=== PATIENT | female | born 1950 ===

== ENCOUNTER 2017-10-16 08:20 | Emergency (ER) | payer MEDICARE, BC ==
[2017-10-16 08:43] VITALS: BP 166/63
--- NOTE | 2017-10-16 09:28 | UC ---
Ear Complaint HPI - HPI Summary HPI Summary: 67 yo female with left italgia and bloody D/C Uri symtpoms x 2 days no f/c - History of Current Complaint Chief Complaint: UCEar Stated Complaint: LEFT EAR PAIN Time Seen by Provider: 10/16/17 09:14 Hx Obtained From: Patient Onset/Duration: Gradual Onset, Lasting Days Severity Initially: Moderate Severity Currently: Mild Pain Intensity: 2 Pain Scale Used: 0-10 Numeric Aggravating Factors: Other Associated Signs/Symptoms: Positive: Hearing Loss, URI Symptoms - Allergies/Home Medications Allergies/Adverse Reactions: Allergies Allergy/AdvReac Type Severity Reaction Status Date / Time No Known Allergies Allergy Verified 10/16/17 08:33 Home Medications: Home Medications Lisinopril/Hydrochlorothiazide [Zestoretic 20-12.5 mg Tablet] 1 each PO DAILY [History Confirmed 10/16/17] Metformin HCl [Fortamet] 500 mg PO DAILY 10/16/17 [History Confirmed 10/16/17] PMH/Surg Hx/FS Hx/Imm Hx Previously Healthy: Yes Endocrine History: Diabetes Cardiovascular History: Hypertension - Surgical History Surgical History: Yes Surgery Procedure, Year, and Place: Shoulder surgery - Family History Known Family History: Positive: Hypertension, Other - pancreatic CA (F) - Social History Alcohol Use: Weekly Alcohol Amount: 3-4 times weekly Substance Use Type: None Smoking Status (MU): Current Some Day Smoker Type: Cigarettes Amount Used/How Often: 1 pack per month Review of Systems Constitutional: Negative Skin: Negative Eyes: Negative ENT: Sore Throat, Ear Ache, Nasal Discharge, Sinus Congestion Respiratory: Negative Cardiovascular: Negative Gastrointestinal: Negative Genitourinary: Negative Motor: Negative Neurovascular: Negative Musculoskeletal: Negative Neurological: Negative Psychological: Negative All Other Systems Reviewed And Are Negative: Yes Physical Exam Triage Information Reviewed: Yes Appearance: Well-Appearing, No Pain Distress, Well-Nourished Vital Signs: Initial Vital Signs Temp 98.4 F 10/16/17 08:36 Pulse 100 10/16/17 08:36 Resp 20 10/16/17 08:36 BP 166/63 10/16/17 08:36 Pulse Ox 95 10/16/17 08:36 Vital Signs Reviewed: Yes Eyes: Positive: Conjunctiva Clear ENT: Positive: Nasal congestion, TM red - LEFT, Other - bloody d/c in left EAC. Negative: Hearing grossly normal, Nasal drainage, TMs normal, Tonsillar swelling, Tonsillar exudate, Trismus, Muffled voice, Hoarse voice Dental Exam: Normal Neck: Positive: Supple, Nontender, No Lymphadenopathy Respiratory: Positive: Chest non-tender, Lungs clear, Normal breath sounds, No respiratory distress Cardiovascular: Positive: RRR, No Murmur Musculoskeletal: Positive: ROM Intact, No Edema Neurological: Positive: Alert Psychological Exam: Normal Skin Exam: Normal Ear Complaint Course/Dx - Differential Dx/Diagnosis Provider Diagnoses: left otitis media. left TM perforation Discharge - Sign-Out/Discharge Documenting (check all that apply): Discharge - Discharge Plan Condition: Stable Disposition: HOME Prescriptions: Amoxicillin PO (*) [Amoxicillin 875 MG (*)] 875 mg PO BID #20 tab Patient Education Materials: Ruptured Eardrum (ED), Ear Infection (ED) Referrals: Nabor Norman MD [Primary Care Provider] - 2 Weeks Additional Instructions: tylenol or advil for pain recheck in 2-3 days if not improved - Billing Disposition and Condition Condition: STABLE Disposition: HOME
== END 2017-10-16 09:33 | disposition home or self-care (01) ==
LOC: UCCORT 08:20
DX: H66.92 Otitis media, unspecified, left ear (principal); H72.92 Unspecified perforation of tympanic membrane, left ear; F17.210 Nicotine dependence, cigarettes, uncomplicated
CPT/HCPCS: 99202; G0463

== ENCOUNTER 2017-11-07 08:31 | Emergency (ER) | payer MEDICARE, BC ==
[2017-11-07 09:00] VITALS: BP 139/54
--- NOTE | 2017-11-07 09:27 | UC ---
Respiratory Complaint HPI - HPI Summary HPI Summary: Per [facility] helper induction: "Pt returns from 10/16/17 visit, c/o reduced hearing on left; pain with deep breaths in back at shoulder blade, chest congestion.Pt has had antibiotic tx for 18 days. PCP prescribed ear drops 10/26; informed pt that ear is improving. Pt c/o sore throat to PCP on 11/03/17, c/o post nasal drip, PCP added claritin tx 11/03/17. Pt will see ENT 11/18/17." Dr Holliday. -ear drops and abx are for perforated left TM recently. she says that she knows that she "frets" allory royal doesnt know that she had to come in. has been to the Drs several times for these sx. no fevers or chills. -she denies all chest pain. pain in back is mild. - History of Current Complaint Chief Complaint: UCRespiratory Stated Complaint: RESPRITORY Time Seen by Provider: 11/07/17 08:57 Pain Intensity: 0 - Allergies/Home Medications Allergies/Adverse Reactions: Allergies Allergy/AdvReac Type Severity Reaction Status Date / Time No Known Allergies Allergy Verified 11/07/17 09:00 Home Medications: Home Medications Loratadine [Claritin 10 MG CAP] 10 mg PO DAILY 11/07/17 [History Confirmed 11/07] Neomyc/Polym/HC 1% OTIC SUSP* [Cortisporin Otic Susp 1%*] 1 tosha BOTH EARS QID [History Confirmed 11/07/17] PMH/Surg Hx/FS Hx/Imm Hx Endocrine History: Diabetes Cardiovascular History: Hypertension - Surgical History Surgical History: Yes Surgery Procedure, Year, and Place: Right shoulder surgery - Family History Known Family History: Positive: Hypertension, Other - pancreatic CA (F) - Social History Alcohol Use: Weekly Alcohol Amount: 3-4 times weekly Substance Use Type: None Smoking Status (MU): Current Some Day Smoker Type: Cigarettes Amount Used/How Often: 1 pack per month Review of Systems Constitutional: Negative Skin: Negative Eyes: Negative ENT: Sore Throat, Ear Ache Respiratory: Cough Cardiovascular: Negative Gastrointestinal: Negative Genitourinary: Negative Motor: Negative Neurovascular: Negative Musculoskeletal: Negative Neurological: Negative Psychological: Negative Is Patient Immunocompromised?: No All Other Systems Reviewed And Are Negative: Yes Physical Exam Triage Information Reviewed: Yes Appearance: Well-Appearing, No Pain Distress, Well-Nourished Vital Signs: Initial Vital Signs Temp 98.6 F 11/07/17 08:41 Pulse 93 11/07/17 08:41 Resp 18 11/07/17 08:41 BP 139/54 11/07/17 08:41 Pulse Ox 98 11/07/17 08:41 Vital Signs Reviewed: Yes Eyes: Positive: Conjunctiva Clear ENT: Positive: Pharyngeal erythema - mild, +PND, no exudate., TM dull - left ear w/ scar tissue and scabing on TM. Negative: Sinus tenderness Dental Exam: Normal Neck exam: Normal Neck: Positive: Supple, Nontender, No Lymphadenopathy Respiratory: Positive: Lungs clear, No respiratory distress, No accessory muscle use, Decreased breath sounds - mild. Negative: Crackles, Rhonchi, Stridor, Wheezing Cardiovascular Exam: Normal Cardiovascular: Positive: RRR Abdomen Description: Positive: Nontender, Soft Musculoskeletal Exam: Normal Neurological Exam: Normal Psychological Exam: Normal Skin Exam: Normal UC Diagnostic Evaluation - Laboratory O2 Sat by Pulse Oximetry: 98 Respiratory Course/Dx - Course Course Of Treatment: Viral URI in lungs. may get some rellief w/ alb MDI. disc potential SEs of jitteriness and faster heart rate. - Differential Dx/Diagnosis Differential Diagnosis/HQI/PQRI: Asthma, Bronchitis, Lower Resp Infection Provider Diagnoses: URI Discharge - Sign-Out/Discharge Documenting (check all that apply): Discharge/Admit/Transfer - Discharge Plan Condition: Stable Disposition: HOME Prescriptions: Albuterol HFA INHALER* [Ventolin HFA Inhaler*] 2 puff INH Q4H PRN #1 mdi PRN Reason: Cough Patient Education Materials: Cold Symptoms (ED) Referrals: Juhi Norman MD [Primary Care Provider] - Additional Instructions: You can use the albuterol inhaler for symptomatic relief. Continue the current plan that the other providers have made for you. - Billing Disposition and Condition Condition: STABLE Disposition: HOME
== END 2017-11-07 09:47 | disposition home or self-care (01) ==
LOC: UCCORT 08:31
DX: J06.9 Acute upper respiratory infection, unspecified (principal); R07.1 Chest pain on breathing; E11.9 Type 2 diabetes mellitus without complications; I10 Essential (primary) hypertension; F17.210 Nicotine dependence, cigarettes, uncomplicated
CPT/HCPCS: 99212; G0463

== ENCOUNTER 2019-07-01 09:29 | Emergency (ER) | payer MEDICARE, BC ==
--- OUTSIDE RECORDS SUMMARY | 2019-07-01 09:53 | XMS REPORT | Continuity of Care Document ---
:1950 External Reference #:[id number] Author Name Juhi Norman M.D. Address [address] [place] [address] Problems Active Problems Provider Date Type II diabetes mellitus uncontrolled Juhi Norman M.D. Onset: 04/20/2013 Essential hypertension Juhi Norman M.D. Onset: 04/20/2013 Hyperlipidemia Juhi Norman M.D. Onset: 04/20/2013 Psoriasis with arthropathy Juhi Norman M.D. Onset: 07/31/2014 Social History Type Date Description Comments Sex Unknown ETOH Use Consumes 3 glasses of wine per day Tobacco Use Start: Unknown Patient is a current smoker, 10 cigarrettes per month smokes some days Allergies, Adverse Reactions, Alerts Description No Known Drug Allergies Medications Active Medications SIG Qnty Indications Ordering Date Provider Ketoconazole apply twice a day 60gm Juhi Norman, 11/22/2018 2% M.D. Cream One Touch Test as directed - 1 x 100units E11.65 Juhi Norman, 11/22/2018 Strips daily M.D. Omeprazole 1 by mouth every day 90caps K21.9 Juhi Norman, 03/03/[address] Kuamr 1 dose intramuscular 2doses Juhi Norman, 02/16/2018 50mcg then repeat in 4 M.D. Suspension Rec month Clotrimazole/Betame apply to affected 45units B37.2 Juhi Norman, 2016 thasone area three times a M.D. Dipropionate day 1-0.05% Cream One Touch Delica test once daily dx 100units Juhi Norman, 05/22/2016 e11.9 M.D. One Touch as directed 1units E11.65 Juhi Norman, 01/24/2014 Glucometer M.D. Lisinopril-Hydrochl take one tablet by 90tabs Juhi Norman, 01/24/2014 orothiazide mouth every day M.D. 20-12.5mg Tablets Calcium 500 +D bid Nurse 04/13/2013 [id number] Tablets Fish Oil 2 tabs po qam and 1 Nurse 04/13/2013 1000mg tab po qpm Capsules Multivital-M every day Nurse 04/13/2013 Tablets Vitamin D-1000 as directed. 100tabs Nurse 04/13/2013 1000Unit Tablets Metformin HCL ER tab 1 by mouth every 90tabs Juhi Norman, 04/13/2013 evening M.D. 500mg Tablets ER 24HR Lotemax One Drop In Eye Unknown 0.5% Suspension [employer] Berg[place]ot one a day Unknown Capsule Immunizations CPT Code Status Date Vaccine Reaction Lot # [id number] Given 06/23/2019 Influenza Virus [id number] (Quadrivalent)Splitvirus 3 Years Of Age And Older Q2035 Given 05/25/2018 Influenza Virus [id number] (Quadrivalent)Splitvirus 3 Years Of Age And Older Q2035 Given 04/07/2017 Influenza Virus (Quadrivalent)Splitvirus 3 Years Of Age And Older Q2035 Given 04/07/2017 Influenza Virus (Quadrivalent)Splitvirus 3 Years Of Age And Older [id number] Given 12/05/2016 Tetanus,Diphtheria,Adut/Ad [id number] ol Pertussis Q2037 Given 04/01/2016 Influenza Vaccine [id number] (Fluvirin) 3 Years Of Age Or Older Q2037 Given 06/18/2015 Influenza Vaccine [id number] (Fluvirin) 3 Years Of Age Or Older 75631 Given 02/07/2015 Pneumococcal Conjugate [id number] Vaccine 13 Valent For Intramuscular Use Q2036 Given 07/14/2014 Flulaval [id number] Q2036 Given 04/20/2013 Flulaval [id number] 15281 Given 07/06/2011 Pneumovax Polyvalent Inj Done through prevous Im prvider [id number] Given 04/05/2010 Zostavax Done through previus provider Vital Signs Date Vital Result Comment 06/23/2019 12:02pm BP Systolic 142 mmHg BP Diastolic 90 mmHg Heart Rate 82 /min Height 69 inches 5'9" Weight 221.00 lb BMI (Body Mass Index) 32.6 kg/m2 03/01/2019 10:17am BP Systolic 118 mmHg BP Diastolic 62 mmHg Heart Rate 82 /min Height 69 inches 5'9" Weight 219.00 lb BMI (Body Mass Index) 32.3 kg/m2 O2 % BldC Oximetry 96 % Results Test Acquired Date Facility Test Result H/L Range Note .Lipid Panel 05/30/2019 [facility] Cholesterol 259 mg /dL High <200 1, [address] [place] [address] [phone] Triglycerides 131 mg/dL <150 3 HDL Cholesterol 49 mg/dL >40 4 LDL-Cholesterol 184 mg/dL < 100 5 Hemoglobin A1c 05/30/2019 [facility] Glycohemoglobin 6.2 % Normal 4.2-6.3 [address] (A1c) [place], [place] [id number] [phone] eAG 131 mg/dL Basic Metabolic 05/30/2019 [facility] Glucose 118 mg/ dL High 74-[address] [place], [place] [id number] [phone] BUN 23 mg/dL High 7-18 Creatinine 0.7 mg/dL Normal 0.6-1.3 Glom Filtration Rate, Estimate >60 mL/min >60 If >60 mL/min >60 7 BUN/Creat 32.8 ratio Sodium 136 mmol/L Normal 136-145 Potassium 4.2 mmol/L Normal 3.5-5.1 Chloride 105 mmol/L Normal 98-107 Carbon Dioxide 26 mmol/L Normal 21-32 Anion Gap 5 mEq/L Low 8-16 Calcium 9.1 mg/dL Normal 8.5-10.1 .Lipid Panel 02/11/2019 [facility] Cholesterol 242 mg /dL High <200 8, [address] [place], [place] [id number] [phone] Triglycerides 127 mg/dL <150 10 HDL Cholesterol 46 mg/dL >40 11 LDL-Cholesterol 171 mg/dL < 100 12 1 E11.9 I11.9 E78.5 2 Reference Guidelines*: Desirable: ........... < 200 mg/dL Borderline High: ..... 200-239 mg/dL High: ................ >= 240 mg/dL * The National Cholesterol Education Program (NCEP) 3 Reference Guidelines*: Normal: ............. < 150 mg/dL Borderline High: .... 150-199 mg/dL High: ............... 200-499 mg/dL Very High: .......... > 500 mg/dL * Source: National Cholesterol Education Program (NCEP) 4 Reference Guidelines*: Low HDL: ..... < 40 mg/dL Normal: ..... 40-60 mg/dL Desirable: ... > 60 mg/dL *The National Cholesterol Education Program(NCEP) 5 Reference Guidelines*: Optimal:........... <100 mg/dL Near Optimal....... 100-129 mg/dL Borderline High.... 130-159 mg/dL High............... 160-189 mg/dL Very High.......... >=190 mg/dL * Source: National Cholesterol Education Program (NCEP) 6 Elevated levels of HbA1c suggest the need for more aggressive treatment of glycemia. The [place] Diabetes Association recommends that a primary goal of therapy should be a HbA1c of <7% and that physicians should re-evaluate the treatment regimen in patients with HbA1c values consistently >8%. 7 Note: Persistent reduction for 3 months or more in an eGFR <60 mL/min/1.73 m2 defines CKD. Patients with eGFR values >/=60 mL/min/1.73 m2 may also have CKD if evidence of persistent proteinuria is present. The original MDRD equation for estimated GFR is not valid for patients less than 18 years of age. Additional information may be found at www.kdoqi.org. 8 E78.2 9 Reference Guidelines*: Desirable: ........... < 200 mg/dL Borderline High: ..... 200-239 mg/dL High: ................ >= 240 mg/dL * The National Cholesterol Education Program (NCEP) 10 Reference Guidelines*: Normal: ............. < 150 mg/dL Borderline High: .... 150-199 mg/dL High: ............... 200-499 mg/dL Very High: .......... > 500 mg/dL * Source: National Cholesterol Education Program (NCEP) 11 Reference Guidelines*: Low HDL: ..... < 40 mg/dL Normal: ..... 40-60 mg/dL Desirable: ... > 60 mg/dL *The National Cholesterol Education Program(NCEP) 12 Reference Guidelines*: Optimal:........... <100 mg/dL Near Optimal....... 100-129 mg/dL Borderline High.... 130-159 mg/dL High............... 160-189 mg/dL Very High.......... >=190 mg/dL * Source: National Cholesterol Education Program (NCEP) Procedures Date Code Description Status 07/06/2004 187067221 Bone Mineral Density Test Completed 07/06/2002 [id number] Colonoscopy Completed Medical Devices Description No Information Available Encounters Type Date Location Provider Dx Diagnosis Office Visit 03/01/2019 Main Office Juhi Norman M.D. E11.9 Type 2 diabetes 10:15a mellitus without complications I11.9 Hypertensive heart disease without heart failure E78.5 Hyperlipidemia, unspecified Assessments Date Code Description Provider 06/23/2019 E11.9 Type 2 diabetes mellitus without complications Juhi Norman M.D. 06/23/2019 I11.9 Hypertensive heart disease without heart failure Juhi Norman M.D. 06/23/2019 E78.5 Hyperlipidemia, unspecified Juhi Norman M.D. 06/23/2019 M16.11 Unilateral primary osteoarthritis, right hip Juhi Norman M.D. 03/01/2019 E11.9 Type 2 diabetes mellitus without complications Juhi Norman M.D. 03/01/2019 I11.9 Hypertensive heart disease without heart failure Juhi Norman M.D. 03/01/2019 E78.5 Hyperlipidemia, unspecified Juhi Norman M.D. Plan of Treatment Future Appointment(s):10/18/2019 8:00 am - Nurse at Main Omhqlr0110/24/2019 10: 30 am - Juhi Norman M.D. at Main Uhirzu1503/15/2018 - Juhi Norman M.D.K21.9 Gastro-esophageal reflux disease without esophagitisComments:Discussed avoidance of rich foods, large meals. May use OTC meds prn for relief. Will contact office if symptoms worsen monitor magnesium levels with PPI Functional Status Description No Information Available Mental Status Description No Information Available Referrals Description No Information Available
--- OUTSIDE RECORDS SUMMARY | 2019-07-01 09:53 | XMS REPORT | Continuity of Care Document ---
:1950 External Reference #:[id number] Author Name Juhi Norman M.D. (transmitted by agent of provider Aura Edouard) Address [address] [place] [address] Problems Active Problems Provider Date Type II [...] day 90caps K21.9 Juhi Norman, 03/03/[address] Kumar 1 dose intramuscular 2doses Juhi Norman, 02/16/2018 [...] Tablets Calcium 500 +D bid Nurse 04/13/2013 [id number] Tablets Fish Oil 2 tabs po qam and 1 Nurse 04/13/2013 1000mg tab po qpm Capsules Multivital-M every day Nurse 04/13/2013 Tablets Vitamin D-1000 as directed. 100tabs Nurse 04/13/2013 1000Unit Tablets Metformin HCL ER tab 1 by mouth every 90tabs Juhi Norman, 04/13/2013 evening M.D. 500mg Tablets ER 24HR Lotemax One Drop In Eye Unknown 0.5% Suspension [place] Bergamot one a day Unknown Capsule Immunizations CPT Code Status Date Vaccine Reaction Lot # [id number] Given 06/23/2019 Influenza Virus [id number] (Quadrivalent)Splitvirus 3 Years Of Age And Older Q2035 Given 05/25/2018 Influenza Virus [id number] (Quadrivalent)Splitvirus 3 Years Of Age And Older Q2035 Given 04/07/2017 Influenza Virus (Quadrivalent)Splitvirus 3 Years Of Age And Older Q2035 Given 04/07/2017 Influenza Virus (Quadrivalent)Splitvirus 3 Years Of Age And Older 09186 Given 12/05/2016 Tetanus,Diphtheria,Adut/Ad [id number] ol Pertussis Q2037 Given 04/01/2016 Influenza Vaccine [id number] (Fluvirin) 3 Years Of Age Or Older Q2037 Given 06/18/2015 Influenza Vaccine [id number] (Fluvirin) 3 Years Of Age Or Older 57627 Given 02/07/2015 Pneumococcal Conjugate [id number] Vaccine 13 Valent For Intramuscular Use Q2036 Given 07/14/2014 Flulaval [id number] Q2036 Given 04/20/2013 Flulaval 9h2gx 75917 Given 07/06/2011 Pneumovax Polyvalent Inj Done through prevous Im prvider 92615 Given 04/05/2010 Zostavax Done through previus provider [...] Result H/L Range Note .Lipid Panel 05/30/2019 [facility] Cholesterol 259 mg /dL High <200 1, [address] [place] [address] [phone] Triglycerides 131 mg/dL <150 3 HDL Cholesterol 49 mg/dL >40 4 LDL-Cholesterol 184 mg/dL < 100 5 Hemoglobin A1c 05/30/2019 [facility] Glycohemoglobin 6.2 % Normal 4.2-6.3 [address] (A1c) [place], [place] [address] [phone] eAG 131 mg/dL Basic Metabolic 05/30/2019 [facility] Glucose 118 mg/ dL High 74-[address] [place], [place] [id number] [phone] BUN 23 mg/dL High 7-18 Creatinine 0.7 mg/dL Normal 0.6-1.3 Glom Filtration Rate, Estimate >60 mL/min >60 If >60 mL/min >60 7 BUN/Creat 32.8 ratio Sodium 136 mmol/L Normal 136-145 Potassium 4.2 mmol/L Normal 3.5-5.1 Chloride 105 mmol/L Normal 98-107 Carbon Dioxide 26 mmol/L Normal 21-32 Anion Gap 5 mEq/L Low 8-16 Calcium 9.1 mg/dL Normal 8.5-10.1 .Lipid Panel 02/11/2019 [facility] Cholesterol 242 mg /dL High <200 8, [address] [place], [place] [id number] [phone] Triglycerides 127 mg/dL <150 10 HDL Cholesterol [...] for more aggressive treatment of glycemia. The [place] Diabetes Association recommends that a primary goal [...] (NCEP) Procedures Date Code Description Status 07/06/2004 [id number] Bone Mineral Density Test Completed 07/06/2002 [id number] Colonoscopy Completed Medical Devices Description No Information [...] Appointment(s):10/18/2019 8:00 am - Nurse at Main Uhuysw8710/24/2019 10: 30 am - Juhi Norman M.D. at Main Tvdlpu1203/15/2018 - Juhi Norman M.D.K21.9 Gastro-esophageal reflux disease without esophagitisComments:Discussed avoidance of rich foods, large meals. May use OTC meds prn for relief. Will contact office if symptoms worsen monitor magnesium levels with PPI Functional Status Description No Information Available Mental Status Description No Information Available Referrals Description No Information Available
--- OUTSIDE RECORDS SUMMARY | 2019-07-01 09:53 | XMS REPORT | Continuity of Care Document ---
:1950 External Reference #:[id number] Author Name Juhi Norman M.D. (transmitted by agent of provider Tika Campo) Address [address] [place] [address] Problems Active Problems Provider Date Type II [...] 100units E11.65 Juhi Norman, 11/22/2018 Strips daily M.DLiz Omeprazole 1 by mouth every day 90caps [...] Tablets Calcium 500 +D bid Nurse 04/13/2013 [id number] Tablets Fish Oil 2 tabs po qam and 1 Nurse 04/13/2013 1000mg tab po qpm Capsules Multivital-M every day Nurse 04/13/2013 Tablets Vitamin D-1000 as directed. 100tabs Nurse 04/13/2013 1000Unit Tablets Metformin HCL ER tab 1 by mouth every 90tabs Juhi Norman, 04/13/2013 evening M.D. 500mg Tablets ER 24HR Lotemax One Drop In Eye Unknown 0.5% Suspension Scarbro [place] one a day Unknown Capsule Immunizations CPT Code Status Date Vaccine Reaction Lot # [id number] Given 05/25/2018 Influenza Virus [id number] (Quadrivalent)Splitvirus 3 Years Of Age And Older Q2035 Given 04/07/2017 Influenza Virus (Quadrivalent)Splitvirus 3 Years Of Age And Older Q2035 Given 04/07/2017 Influenza Virus (Quadrivalent)Splitvirus 3 Years Of Age And Older 20926 Given 12/05/2016 Tetanus,Diphtheria,Adut/Adol [id number] Pertussis Q2037 Given 04/01/2016 Influenza Vaccine (Fluvirin) [id number] 3 Years Of Age Or Older Q2037 Given 06/18/2015 Influenza Vaccine (Fluvirin) [id number] 3 Years Of Age Or Older 37141 Given 02/07/2015 Pneumococcal Conjugate [id number] Vaccine 13 Valent For Intramuscular Use Q2036 Given 07/14/2014 Flulaval [id number] Q2036 Given 04/20/2013 Flulaval [id number] 84060 Given 07/06/2011 Pneumovax Polyvalent Inj Im Done through prevous prvider 53726 Given 04/05/2010 Zostavax Done through previus provider Vital Signs Date Vital Result Comment 03/01/2019 10:17am BP Systolic 118 mmHg BP Diastolic 62 mmHg Heart Rate 82 /min Height 69 inches 5'9" Weight 219.00 lb BMI (Body Mass Index) 32.3 kg/m2 O2 % BldC Oximetry 96 % 11/22/2018 11:08am BP Systolic 148 mmHg BP Diastolic 76 mmHg BP Systolic Recheck 124 mmHg BP Diastolic Recheck 74 mmHg Heart Rate 72 /min Height 69 inches 5'9" Weight 230.00 lb BMI (Body Mass Index) 34.0 kg/m2 O2 % BldC Oximetry 96 % Results Test Acquired Date Facility Test Result H/L Range Note .Lipid Panel 05/30/2019 [facility] Cholesterol 259 mg /dL High <200 1, [address] [place], [place] [id number] [phone] Triglycerides 131 mg/dL <150 3 HDL Cholesterol 49 mg/dL >40 4 LDL-Cholesterol 184 mg/dL < 100 5 Hemoglobin A1c 05/30/2019 [facility] Glycohemoglobin 6.2 % Normal 4.2-6.3 [address] (A1c) [place], [place] [id number] [phone] eAG 131 mg/dL Basic Metabolic 05/30/2019 [facility] Glucose 118 mg/ dL High 74-[address] [place], [place] [id number] [phone] BUN 23 mg/dL High 7-18 Creatinine 0.7 mg/dL Normal 0.6-1.3 Glom Filtration Rate, Estimate >60 mL/min >60 If >60 mL/min >60 7 BUN/Creat 32.8 ratio Sodium 136 mmol/L Normal 136-145 Potassium 4.2 mmol/L Normal 3.5-5.1 Chloride 105 mmol/L Normal 98-107 Carbon Dioxide 26 mmol/L Normal 21-32 Anion Gap 5 mEq/L Low 8-16 Calcium 9.1 mg/dL Normal 8.5-10.1 .Lipid Panel 02/11/2019 [facility] Cholesterol 242 mg /dL High <200 8, [address] [place], [place] [id number] [phone] Triglycerides 127 mg/dL <150 10 HDL Cholesterol [...] for more aggressive treatment of glycemia. The [place] [employer] recommends that a primary goal [...] (NCEP) Procedures Date Code Description Status 07/06/2004 [id number] Bone Mineral Density Test Completed 07/06/2002 93711518 Colonoscopy Completed Medical Devices Description No Information Available Encounters Type Date Location Provider Dx Diagnosis Office Visit 03/01/2019 Main Office Juhi Norman M.D. E11.9 Type 2 diabetes 10:15a mellitus without complications I11.9 Hypertensive heart disease without heart failure E78.5 Hyperlipidemia, unspecified Assessments Date Code Description Provider 03/01/2019 E11.9 Type 2 diabetes mellitus without complications Juhi Norman M.D. 03/01/2019 I11.9 Hypertensive heart disease without heart failure Juhi Norman M.D. 03/01/2019 E78.5 Hyperlipidemia, unspecified Juhi Norman M.D. Plan of Treatment 03/15/2018 - Juhi Norman M.D.K21.9 Gastro-esophageal reflux disease without esophagitisComments:Discussed avoidance of rich foods, large meals. May use OTC meds prn for relief. Will contact office if symptoms worsen monitor magnesium levels with PPI Functional Status Description No Information Available Mental Status Description No Information Available Referrals Description No Information Available
[2019-07-01 10:49] VITALS: BP 148/60
--- NOTE | 2019-07-01 12:04 | UC ---
Ear Complaint HPI - HPI Summary HPI Summary: 69-year-old woman comes in with a chief complaint of left ear pain. Started about 3 days ago. Pain just gradually getting worse. Pain is worse when she lays on her left side of her head. Pain is less when she doesn't do that. No fevers or chills. Only noticed some runny nose this morning. No sore throat. Patient reports she's had otitis media in the past and it's not the same kind of pain. Has not noticed any rash. Denies any dental pain or pain with chewing. - History of Current Complaint Chief Complaint: UCEar Stated Complaint: LEFT EAR Time Seen by Provider: 07/01/19 11:55 Pain Intensity: 6 - Allergies/Home Medications Allergies/Adverse Reactions: Allergies Allergy/AdvReac Type Severity Reaction Status Date / Time No Known Allergies Allergy Verified 07/01/19 10:44 Home Medications: Home Medications Omeprazole 20 mg PO DAILY 07/01/19 [History Confirmed 07/01/19] PMH/Surg Hx/FS Hx/Imm Hx Previously Healthy: Yes Endocrine History: Diabetes Cardiovascular History: Hypertension GI/ History: Gastroesophageal Reflux - Surgical History Surgical History: Yes Surgery Procedure, Year, and Place: Right shoulder surgery - Family History Known Family History: Positive: Hypertension, Other - pancreatic CA (F) - Social History Alcohol Use: Weekly Alcohol Amount: 3-4 times weekly Substance Use Type: None Smoking Status (MU): Current Some Day Smoker Type: Cigarettes Amount Used/How Often: 1 pack per month Review of Systems All Other Systems Reviewed And Are Negative: Yes Constitutional: Positive: Negative Skin: Positive: Negative Eyes: Positive: Negative ENT: Positive: Ear Ache, Nasal Discharge Respiratory: Positive: Negative Cardiovascular: Positive: Negative Gastrointestinal: Positive: Negative Motor: Positive: Negative Neurovascular: Positive: Negative Musculoskeletal: Positive: Negative Neurological: Positive: Negative Psychological: Positive: Negative Is Patient Immunocompromised?: No Physical Exam Triage Information Reviewed: Yes Appearance: Well-Appearing, No Pain Distress, Well-Nourished Vital Signs: Initial Vital Signs Temp 98.1 F 07/01/19 10:45 Pulse 69 07/01/19 10:45 Resp 16 07/01/19 10:45 BP 148/60 07/01/19 10:45 Pulse Ox 100 07/01/19 10:45 Vital Signs Reviewed: Yes Eye Exam: Normal Eyes: Positive: Conjunctiva Clear ENT: Positive: Pharynx normal, TMs normal, Other - Left ear canal is swollen and tender to palpation. The TMJs and the parotid glands are nontender to palpation. Dental Exam: Normal Neck: Positive: Supple Respiratory: Positive: Lungs clear, Normal breath sounds, No respiratory distress Cardiovascular: Positive: RRR Musculoskeletal: Positive: Strength Intact, ROM Intact Neurological: Positive: Alert, Muscle Tone Normal Psychological: Positive: Age Appropriate Behavior Skin Exam: Normal - No rash on the side of the face. Ear Complaint Course/Dx - Course Course Of Treatment: The left ear canal is swollen and tender to palpation. And treating for otitis externa. No rash at this point. At the patient know that if she did not improve or worsen a rash she needs to get reevaluated. - Differential Dx/Diagnosis Provider Diagnosis: Left otitis media Discharge ED - Sign-Out/Discharge Documenting (check all that apply): Patient Departure All imaging exams completed and their final reports reviewed: No Studies - Discharge Plan Condition: Stable Disposition: HOME Prescriptions: Ofloxacin 0.3% (Ear Drop)* [Floxin 0.3% OTIC.DARRON (Ear Drop)] 5 drop LEFT EAR BID #1 btl Patient Education Materials: Otitis Externa (ED) Referrals: Juhi Norman MD [Primary Care Provider] - Additional Instructions: FOLLOW UP WITH YOUR DOCTOR IF NOT COMPLETELY IMPROVED. GET REEVALUATED SOONER IF NOT IMPROVING OR WORSE OR ANY QUESTIONS OR CONCERNS. - Billing Disposition and Condition Condition: STABLE Disposition: Home
== END 2019-07-01 12:08 | disposition home or self-care (01) ==
LOC: UCCORT 09:29
DX: H66.92 Otitis media, unspecified, left ear (principal); I10 Essential (primary) hypertension; E11.9 Type 2 diabetes mellitus without complications; K21.9 Gastro-esophageal reflux disease without esophagitis; J34.89 Other specified disorders of nose and nasal sinuses; F17.210 Nicotine dependence, cigarettes, uncomplicated; Z79.899 Other long term (current) drug therapy
CPT/HCPCS: 99212; G0463

== ENCOUNTER 2021-05-09 07:17 | Inpatient (IN) ==
[~2021-05-09 07:17] MED LIST: Buffered Lidocaine 1% SYRIN 1 ml INTRADERM ONE; Lactated Ringers 1000 ml BAG 1,000 ML IV SCH
[2021-05-09] MEDS ORDERED: Lidocaine 2% PF 5 ML VIAL ONE (07:51)
[2021-05-09] MEDS ORDERED: fentaNYL 100 mcg/2 ml 50 MCG/ML VIAL ONE ×2 (07:51→12:26)
[2021-05-09] MEDS ORDERED: Phenylephrine IV 10 MG/ML 1 ml VIAL ONE ×2 (07:51→14:04)
[2021-05-09] MEDS ORDERED: Midazolam 2 mg/2 ml VIAL 1 mg/ml 2 ml VIAL (2 mg) ONE (07:51)
[2021-05-09] MEDS ORDERED: ceFAZolin 2 GM in NS PREMIX 2 GM/100 ML BAG IVPB ONE (08:09)
[2021-05-09] MEDS ORDERED: ROPIVACAINE 5 MG/ML 30 ML BTL (0.5%) ONE (09:14)
[2021-05-09] MEDS ORDERED: Bupivacaine 0.5% SDV PF 30ML VIAL ONE (09:45)
[2021-05-09] MEDS ORDERED: Lidocaine 0.5% SDV 50 ML VIAL ONE (09:52)
[2021-05-09] MEDS ORDERED: Ondansetron 4 mg VIAL 2 MG/ML 2 ml VIAL ONE (10:07)
[2021-05-09] MEDS ORDERED: Dexamethasone IV 4 MG/ML VIAL 1 ml VIAL ONE (10:07)
[2021-05-09] MEDS ORDERED: Propofol 10 MG/ML 20 ML BTL ONE ×3 (10:48→13:46)
[2021-05-09] MEDS ORDERED: Ondansetron ODT 4 mg TAB 4 MG TAB PO PRN (11:01)
[2021-05-09] MEDS ORDERED: Magnesium Hydroxide LIQ 30 ML UDC PO PRN (11:01)
[2021-05-09] MEDS ORDERED: Lactulose 30 ml UDC PO PRN (11:01)
[2021-05-09] MEDS ORDERED: diPHENhydraMINE IV 50 MG/ML 1 ml VIAL (BENADRYL) IV PRN ×2 (11:01→12:01)
[2021-05-09] MEDS ORDERED: Morphine 2 MG/ML SYRINGE IV PRN (11:01)
[2021-05-09] MEDS ORDERED: diPHENhydraMINE 25 mg TAB PO PRN (11:01)
[2021-05-09] MEDS ORDERED: Ondansetron 4 mg VIAL 2 MG/ML 2 ml VIAL IV PRN (11:01)
[2021-05-09] MEDS ORDERED: TACROLIMUS TOPICAL PRN (11:11)
[2021-05-09] MEDS ORDERED: Ketoconazole 2 % CREAM (NF) 30 GM TUBE TOPICAL PRN (11:11)
[2021-05-09] MEDS ORDERED: LOTEMAX PO PRN (11:11)
[2021-05-09] MEDS ORDERED: ceFAZolin 1 GM ADVAN 1 GM in NS 0.9% 50 ML 50 ML IVPB SCH (12:00)
[2021-05-09] MEDS ORDERED: HYDROmorphone 1 MG/1 ML SYRINGE IV PRN (12:01)
[2021-05-09] MEDS ORDERED: DiMENhydriNATE IV 50 mg/ml 1 ml VIAL IV PUSH PRN (12:01)
[2021-05-09] MEDS ORDERED: Naloxone 0.4 mg VIAL 0.4 mg/ml 1 ml VIAL IV PRN (12:01)
[2021-05-09] MEDS: FLUOCINONIDE 0.05% TOPICAL SCH ×2 (16:10→21:44)
[2021-05-09] MEDS: ceFAZolin 1 GM ADVAN 1 GM in NS 0.9% 50 ML 50 ML IVPB SCH (17:21)
[2021-05-09] MEDS ORDERED: Hydrocortisone 2.5% CREAM(NF) 30 GM TUBE TOPICAL SCH (21:00)
[2021-05-09] MEDS: Dextran 70/Hypromellose Tears Eye Drops 15 ml BTL (for Artificials Tears) BOTH EYES SCH (21:43)
[2021-05-09] MEDS: Magnesium Hydroxide LIQ 30 ML UDC PO SCH (21:57)
[2021-05-10] MEDS: Lactated Ringers 1000 ml BAG 1,000 ML IV SCH ×2 (00:23→11:25)
[2021-05-10] MEDS: ceFAZolin 1 GM ADVAN 1 GM in NS 0.9% 50 ML 50 ML IVPB SCH ×2 (00:25→10:21)
[2021-05-10 06:07] LABS: Hematocrit 30 % (35-47); Hemoglobin 10.5 g/dL (12.0-16.0); Mean Platelet Volume 7.2 fL (7.4-10.4); Platelet Count 291 10^3/uL (150-450)
[2021-05-10 06:24] LABS: Calcium 8.4 mg/dL (8.6-10.3); Potassium 3.7 mmol/L (3.5-5.0)
[2021-05-10] MEDS: Magnesium Hydroxide LIQ 30 ML UDC PO SCH (08:42)
[2021-05-10] MEDS: Dextran 70/Hypromellose Tears Eye Drops 15 ml BTL (for Artificials Tears) BOTH EYES SCH (08:44)
[2021-05-10] MEDS: FLUOCINONIDE 0.05% TOPICAL SCH (08:47)
[2021-05-10] MEDS ORDERED: Psyllium PAK PO SCH (09:00)
[2021-05-10] MEDS ORDERED: Vitamin THERAPEUTIC TAB PO SCH (09:00)
[2021-05-10] MEDS ORDERED: Olopatadine 0.2% (NF) 1 DROP BTL BOTH EYES SCH (09:00)
[2021-05-10 11:37] VITALS: BP 120/69
== END 2021-05-10 13:31 | disposition home or self-care (01) | DRG 470 ==
LOC: AA 07:17 → SSU 13:38
PROVIDERS: ADMIT Orthopaedic Surgery Adult Reconstructive Orthopaedic Surgery; ATTEND Orthopaedic Surgery Adult Reconstructive Orthopaedic Surgery